=== PATIENT | female | born 1945 | race Caucasian/White ===

== ENCOUNTER 2019-04-08 11:08 | Inpatient (IN) | payer MEDICARE ==
[~2019-04-08] VITALS: Ht 162.6 cm; Wt 98.7 kg
[~2019-04-08 11:08] MED LIST: LEVAQUIN500 MG PO; MUCINEX DM ER1 EACH PO; PREDNISONE20 MG PO; VENTOLIN HFA18 GM INH
--- OUTSIDE RECORDS SUMMARY | 2019-04-08 11:12 | XMS REPORT ---
Author Author [facility] Address Unknown Phone Unavailable Care Team Providers Care Oil Pipe Inspector Helper Name Role Phone ZACHARY MONSIVAIS Unavailable Unavailable Problems This patient has no known problems. Allergies, Adverse Reactions, Alerts This patient has no known allergies or adverse reactions. Medications This patient has no known medications. Results Test Description Test Time Test Comments Text Results Atomic Results Result Comments MAGNESIUM 2019-03-03 05:52:00 MAGNESIUM (BEAKER) (test opcf=608) 1.7 mg/dL 1.6-2.6 BASIC METABOLIC [id number] 05:52:00* Test Item Value Reference Range Comments SODIUM (BEAKER) (test jqdv=919) 139 meq/L 136-145 POTASSIUM (BEAKER) (test rnlw=598) 4.3 meq/L 3.5-5.1 CHLORIDE (BEAKER) (test bqhk=709) 106 meq/L 98-107 CO2 (BEAKER) (test yfdw=176) 27 meq/L 22-29 BLOOD UREA NITROGEN (BEAKER) (test jlst=889) 14 mg/dL 7-21 CREATININE (BEAKER) (test mdgt=097) 0.74 mg/dL 0.57-1.25 GLUCOSE RANDOM (BEAKER) (test iqxv=896) 95 mg/dL 70-105 CALCIUM (BEAKER) (test ohdz=452) 8.9 mg/dL 8.4-10.2 EGFR (BEAKER) (test dnyu=5963) 76 mL/min/1.73 sq m ESTIMATED GFR IS NOT ACCURATE CREATININE CLEARANCE IN PREDICTING GLOMERULAR FILTRATION RATE. ESTIMATED GFR IS NOT APPLICABLE FOR DIALYSIS PATIENTS. CBC W/PLT COUNT & AUTO [id number] 05:27:00* Test Item Value Reference Range Comments WHITE BLOOD CELL COUNT (BEAKER) (test fees=035) 7.4 K/ L 3.5-10.5 RED BLOOD CELL COUNT (BEAKER) (test krdl=713) 4.00 M/ L 3.93-5.22 HEMOGLOBIN (BEAKER) (test vcke=221) 11.6 GM/DL 11.2-15.7 HEMATOCRIT (BEAKER) (test ojad=062) 35.7 % 34.1-44.9 MEAN CORPUSCULAR VOLUME (BEAKER) (test ubse=214) 89.3 fL 79.4-94.8 MEAN CORPUSCULAR HEMOGLOBIN (BEAKER) (test uipu=283) 29.0 pg 25.6-32.2 MEAN CORPUSCULAR HEMOGLOBIN CONC (BEAKER) (test ucpg=130) 32.5 GM/DL 32.2-35.5 RED CELL DISTRIBUTION WIDTH (BEAKER) (test zrjx=026) 13.3 % 11.7-14.4 PLATELET COUNT (BEAKER) (test byaj=032) 185 K/CU MM 150-450 MEAN PLATELET VOLUME (BEAKER) (test ecdn=647) 11.3 fL 9.4-12.3 NUCLEATED RED BLOOD CELLS (BEAKER) (test kyps=433) 0 /100 WBC 0-0 NEUTROPHILS RELATIVE PERCENT (BEAKER) (test ydew=508) 54 % LYMPHOCYTES RELATIVE PERCENT (BEAKER) (test kaov=928) 32 % MONOCYTES RELATIVE PERCENT (BEAKER) (test duaq=339) 10 % EOSINOPHILS RELATIVE PERCENT (BEAKER) (test nzwv=761) 2 % BASOPHILS RELATIVE PERCENT (BEAKER) (test sjog=515) 1 % NEUTROPHILS ABSOLUTE COUNT (BEAKER) (test qyjq=757) 4.00 K/ L 1.56-6.13 LYMPHOCYTES ABSOLUTE COUNT (BEAKER) (test waja=525) 2.37 K/ L 1.18-3.74 MONOCYTES ABSOLUTE COUNT (BEAKER) (test lops=454) 0.74 K/ L 0.24-0.36 EOSINOPHILS ABSOLUTE COUNT (BEAKER) (test mqaw=575) 0.17 K/ L 0.04-0.36 BASOPHILS ABSOLUTE COUNT (BEAKER) (test gjyd=086) 0.09 K/ L 0.01-0.08 IMMATURE GRANULOCYTES-RELATIVE PERCENT (BEAKER) (test oxij=9441) 1 % 0-1 [id number] 09:23:00* Test Item Value Reference Range Comments ACTIVATED CLOTTING TIME (BEAKER) (test iqvf=088) 257 sec TESTED AT [address] [address] [id number] 09:14:00* Test Item Value Reference Range Comments ACTIVATED CLOTTING TIME (BEAKER) (test vwur=934) 208 sec TESTED AT [place] [id number]
--- OUTSIDE RECORDS SUMMARY | 2019-04-08 11:12 | XMS REPORT | Clinical Summary ---
Author Author [facility] Address Unknown Phone Unavailable Care Team Providers Care Contractor General Engineering Name Role Phone William Broderick MD PCP Unavailable Allergies Comments Active Allergy Reactions Severity Noted Date Bone aches Celecoxib Other (See 07/22/2007 Comments) Codeine Nausea And High 09/26/1970 Vomiting Colestipol Anaphylaxis High 09/26/2011 Ezetimibe 10/15/2017 Muscle cramping to hands, feet, and legs Fenofibrate Other (See Medium 12/11/2015 Comments) Sweating,bone ache Fluoxetine Hcl Other (See 07/22/2007 Comments) Gabapentin Other (See 02/05/2017 Comments) Pregabalin Other (See 02/05/2017 Comments) myalgia Sdnpwnw-Oan-Bip Reductase Other (See 07/03/2014 Inhibitors Comments) Simvastatin Anaphylaxis High 09/26/2005 Medications End Date Status Medication Sig Dispensed Refills Start Date Active hydrochlorothiazide Take 25 mg by 0 (HYDRODIURIL) 25 MG mouth daily. tablet Active lisinopril Take 5 mg by 0 (PRINIVIL,ZESTRIL) 5 MG mouth daily. tablet Active HYDROcodone-acetaminophen Take 1 tablet 0 (NORCO 10-325) 10-325 mg by mouth per tablet every 6 (six) hours as needed. Active omeprazole (PRILOSEC) 20 Take 20 mg by 0 MG capsule mouth daily. Active oxybutynin (DITROPAN-XL) Take 10 mg by 0 10 MG 24 hr tablet mouth daily. Active conjugated estrogens Place 1 g 0 (PREMARIN) 0.625 mg/gram vaginally 3 vaginal cream (three) times a week at bedtime. Active fluticasone (FLONASE) 50 1 spray by 0 mcg/actuation nasal spray Nasal route as needed . Active aspirin 81 MG chewable Take 81 mg by 0 tablet mouth daily. Active b complex vitamins Take 1 0 capsule capsule by mouth daily. Active cholecalciferol, vitamin Take by 0 D3, 2,000 unit Cap mouth. Active FIBER, DEXTRIN, ORAL Take 1 0 capsule by mouth as needed. Active ferrous sulfate 325 (65 Take 325 mg 0 FE) MG EC tablet by mouth nightly. 03/02/2020 Active clopidogrel (PLAVIX) 75 Take 1 tablet 90 tablet 3 mg tablet (75 mg total) 9 by mouth daily. 12/28/2018 Discontinued fenofibrate (TRIGLIDE) Take 160 mg 0 160 MG tablet by mouth daily. 12/27/2018 Discontinued tiZANidine (ZANAFLEX) 4 Take 4 mg by 0 MG tablet mouth every 8 (eight) hours as needed. 12/28/2018 Discontinued metroNIDAZOLE (FLAGYL) Take 1 tablet 16 tablet 0 500 MG tablet (500 mg 3 total) by mouth 2 (two) times daily. Active Problems Problem Noted Date Subclavian steal syndrome 12/28/2018 Diverticulitis 09/26/2013 Encounters Care Team Description Date Type Specialty 03/03/2019 Travel Virgil Vargas MD STENT / SUBCLAVIAN 03/02/2019 Surgery Virgil Vargas MD Subclavian steal syndrome (Primary Dx) 03/02/2019 Hospital Cardiology - Encounter 03/03/2019 Virgil Vargas MD STENT / SUBCLAVIAN 12/28/2018 Surgery Virgil Vargas MD Subclavian steal syndrome (Primary Dx) 12/28/2018 Hospital Encounter after 04/07/2018 Family History Medical History Relation Name Comments Cancer Brother Hyperlipidemia Father Cancer Mother Diabetes Mother Hyperlipidemia Mother Relation Name Status Comments Brother Father Mother Social History Date Tobacco Use Types Packs/Day Years Used Former Smoker Smokeless Tobacco: Never Used Comments: quit in 1986 Alcohol Use Drinks/Week oz/Week Comments No Sex Assigned at Date Recorded Not on file Industry Job Start Date Occupation Not on file Not on file Not on file Travel End Travel History Travel Start No recent travel history available. Last Filed Vital Signs Time Taken Vital Sign Reading 03/03/2019 7:13 AM CDT Blood Pressure 177/79 03/03/2019 7:13 AM CDT Pulse 58 03/03/2019 7:13 AM CDT Temperature 36.8 C (98.3 F) 03/03/2019 7:13 AM CDT Respiratory Rate 18 03/03/2019 7:13 AM CDT Oxygen Saturation 95% - Inhaled Oxygen - Concentration 03/03/2019 7:13 AM CDT Weight 95.6 kg (210 lb 10.9 oz) 03/02/2019 5:30 AM CDT Height 163.8 cm (5' 4.5") 03/03/2019 7:13 AM CDT Body Mass Index 35.6 Plan of Treatment Not on file Implants Device Identifier Shelf Expiration Date Model / Serial / Lot Implanted Type Area Manufactur er 07/28/2021 [id number] / [id number] / Viabahn Vbx Stents-Per Right: GORE Implanted: Qty: 1 on 03/02/2019 by Virgil Andrews MD Procedures Comments Procedure Name Priority Date/Time Associated Diagnosis REPORT OF PROCEDURE - 03/04/2019 ENDOSCOPY SCAN 2:40 PM CDT RHYTHM STRIP - SCAN 03/04/2019 2:40 PM CDT CARDIAC CATH REPORT - 03/04/2019 SCAN 2:40 PM CDT VASCULAR DIAGRAM -SCAN 03/03/2019 5:22 PM CDT CBC W/PLT COUNT & AUTO Routine 03/03/2019 DIFFERENTIAL 4:57 AM CDT MAGNESIUM Routine 03/03/2019 4:57 AM CDT BASIC METABOLIC PANEL (7) Routine 03/03/2019 4:57 AM CDT CBC W/PLT COUNT & AUTO Routine 03/03/2019 DIFFERENTIAL 4:57 AM CDT POCT-ACT Routine 03/02/2019 9:17 AM CDT POCT-ACT Routine 03/02/2019 9:06 AM CDT STENT / SUBCLAVIAN 03/02/2019 Stricture of artery (HCC) 7:30 AM CDT Syncope and collapse Other transient cerebral ischemic attacks and related syndromes Case Notes (1)CASE POP6/ 802mgy. Special Needs REQ.2ND ROOM / W/ VASCULAR DIAGRAM -SCAN 02/03/2019 4:21 PM CDT REPORT OF PROCEDURE - 12/31/2018 ENDOSCOPY SCAN 1:40 PM LATHE HAND CARDIAC CATH REPORT - 12/31/2018 SCAN 1:40 PM LATHE HAND STENT / SUBCLAVIAN 12/28/2018 Subclavian steal syndrome 7:30 AM LATHE HAND Syncope and collapse Case Notes (1) CASE POP6 after 04/07/2018 Results * EKG-SCANNED (03/04/2019 2:40 PM CDT) Only the most recent of 2 results within the time period is included. Narrative Performed At * RHYTHM STRIP - SCAN (03/04/2019 2:40 PM CDT) Narrative Performed At * CARDIAC CATH REPORT - SCAN (03/04/2019 2:40 PM CDT) Narrative Performed At * VASCULAR DIAGRAM -SCAN (03/03/2019 5:22 PM CDT) Only the most recent of 2 results within the time period is included. Narrative Performed At * CBC with platelet count + automated diff (03/03/2019 4:57 AM CDT) WBC 7.4 3.5 - 10.5 K/L [facility] RBC 4.00 3.93 - 5.22 M/L [facility] Hemoglobin 11.6 11.2 - 15.7 GM/DL [facility] Hematocrit 35.7 34.1 - 44.9 % [facility] MCV 89.3 79.4 - 94.8 fL [facility] MCH 29.0 25.6 - 32.2 pg [facility] MCHC 32.5 32.2 - 35.5 GM/DL [facility] RDW 13.3 11.7 - 14.4 % [facility] Platelets 185 150 - 450 K/CU MM [facility] MPV 11.3 9.4 - 12.3 fL [facility] nRBC 0 0 - 0 /100 WBC [facility] % Neutros 54 % [facility] % Lymphs 32 % [facility] % Monos 10 % [facility] % Eos 2 % [facility] % Baso 1 % [facility] # Neutros 4.00 1.56 - 6.13 K/L [facility] # Lymphs 2.37 1.18 - 3.74 K/L [facility] # Monos 0.74 (H) 0.24 - 0.36 K/L [facility] # Eos 0.17 0.04 - 0.36 K/L [facility] # Baso 0.09 (H) 0.01 - 0.08 K/L [facility] Immature 1 0 - 1 % [facility] Granulocytes-[facility] Specimen Blood Performing Organization Address City/State/Zipcode Phone Number [address] * Magnesium (03/03/2019 4:57 AM CDT) Magnesium 1.7 1.6 - 2.6 mg/dL [facility] Specimen Blood Performing Organization Address City/State/Zipcode Phone Number [address] * Basic Metabolic Panel (03/03/2019 4:57 AM CDT) Sodium 139 136 - 145 meq/L [facility] Potassium 4.3 3.5 - 5.1 meq/L [facility] Chloride 106 98 - 107 meq/L [facility] CO2 27 22 - 29 meq/L [facility] BUN 14 7 - 21 mg/dL [facility] Creatinine 0.74 0.57 - 1.25 mg/dL [facility] Glucose 95 70 - 105 mg/dL [facility] Calcium 8.9 8.4 - 10.2 mg/dL [facility] EGFR 76Comment: ESTIMATED GFR IS mL/min/1.73 sq m [facility] NOT ACCURATE CREATININE [facility] CLEARANCE IN PREDICTING GLOMERULAR FILTRATION RATE. ESTIMATED GFR IS NOT APPLICABLE FOR DIALYSIS PATIENTS. Specimen Blood Performing Organization Address City/[facility] Cent[facility] Phone Number [address] [address] [facility] * POC ACTIVATED CLOTTING TIME (03/02/2019 9:17 AM CDT) Only the most recent of 2 results within the time period is included. Activated Clotting Time 257Comment: TESTED AT [facility] sec [address] Specimen Blood Performing Organization Address [facility] Centercode Phone Number [address] [phone] [facility] * CARDIAC CATH REPORT - SCAN (12/31/2018 1:40 PM LATHE HAND) Narrative Performed At after 04/07/2018 Insurance Payer Benefit Subscriber ID Type Phone Address Plan / Group [facility] xxxxxxxxxxx MEDICARE ADV Advance Directives For more information, please contact: [address] [address] Date Inactivated Comments Code Status Date Activated 03/03/2019 11:54 AM Full Code 03/02/2019 5:41 AM This code status was determined by: Patient 12/28/2018 6:24 PM Full Code 12/28/2018 5:33 AM This code status was determined by: Patient 09/28/2013 1:02 PM All possible means of support, including: cardiac massage, mechanical ventilation, and defibrillation will be used to support life. Code ONE 09/26/2013 9:06 PM
[2019-04-08] MEDS ORDERED: SODIUM CHLORIDE 0.9% 1000ML 1,000 ML IV STA (11:47)
[2019-04-08] MEDS ORDERED: ONDANSETRON HCL INJ 2MG/ML 2ML 2 MG/ML VIAL IV NR (12:00)
[2019-04-08 12:23] LABS: BASOPHILS # (AUTO) 0.1 (0.0-0.1); BASOPHILS % 0.4 % (0.0-1.0); EOSINOPHILS # (AUTO) 0.1 (0.0-0.4); EOSINOPHILS % 0.3 % (0.0-6.0); HEMATOCRIT 43.1 % (34.2-44.1); HEMOGLOBIN 14.7 g/dL (12.0-16.0); LYMPHOCYTES # (AUTO) 0.7 (1.0-3.2); LYMPHOCYTES % 4.1 % (18.0-39.1); MEAN CORPUSCULAR HEMOGLOBIN 29.5 pg (28-32); MEAN CORPUSCULAR HGB CONC 34.1 g/dL (31-35); MEAN CORPUSCULAR VOLUME 86.4 fL (81-99); MONOCYTES # (AUTO) 0.9 (0.2-0.8); MONOCYTES % 4.9 % (4.4-11.3); NEUTROPHILS % 89.6 % (38.7-80.0); PLATELET COUNT 275 x10e3/uL (140-360); RED BLOOD COUNT 4.99 x10e6/uL (3.6-5.1); RED CELL DISTRIBUTION WIDTH 13.5 % (11.7-14.4)
[2019-04-08] MEDS ORDERED: DIATRIZOATE MEGL/DIATRIZOA SOD 30 ML BTL PO ONE ×2 (12:27→12:29)
[2019-04-08 12:34] LABS: INR 0.86; PROTHROMBIN TIME 12.2 seconds (11.9-14.5)
[2019-04-08 12:35] LABS: PARTIAL THROMBOPLASTIN TIME 29.8 seconds (23.8-35.5)
[2019-04-08 12:40] LABS: BILIRUBIN,URINE NEGATIVE (NEGATIVE); CLARITY,URINE SL CLOUDY (CLEAR); COLOR,URINE ORANGE (YELLOW); KETONES,URINE NEGATIVE (NEGATIVE); LEUKOCYTE ESTERASE ,URINE TRACE (NEGATIVE); NITRITE,URINE NEGATIVE (NEGATIVE); PROTEIN,URINE DIPSTICK TRACE (NEGATIVE); URINE UROBILINOGEN 1 mg/dL (0.2 - 1)
[2019-04-08 12:42] LABS: ALANINE AMINOTRANSFERASE 16 IU/L (0-55); ALBUMIN 3.7 g/dL (3.5-5.0); ALKALINE PHOSPHATASE 79 IU/L (40-150); AMYLASE 52 U/L (25-125); ANION GAP 16.9 mmol/L (8-16); BLOOD UREA NITROGEN 24 mg/dL (7-26); BUN/CREATININE RATIO 25 (6-25); CARBON DIOXIDE 27 mmol/L (22-29); CHLORIDE 96 mmol/L (98-107); CREATINE KINASE 64 IU/L (29-168); CREATININE, SERUM 0.96 mg/dL (0.57-1.11); EST GLOMERULAR FILTRATION RATE 57 ML/MIN (60-); GLUCOSE 137 mg/dL (74-118); LIPASE 11 U/L (8-78); POTASSIUM 3.9 mmol/L (3.5-5.1); SODIUM 136 mmol/L (136-145)
[2019-04-08] MEDS ORDERED: SODIUM CHLORIDE 0.9% 1000ML 1,000 ML IV NR (13:02)
[2019-04-08 13:03] LABS: RBC,URINE 0-5 /HPF (0-5); WBC,URINE (MAN) 0-5 /HPF (0-5)
[2019-04-08 13:04] LABS: BACTERIA,URINE FEW /HPF; EPITHELIAL CELLS,URINE RARE /LPF
[2019-04-08] MEDS ORDERED: SODIUM CHLORIDE 0.9% 1000ML 1,000 ML ONE (13:12)
[2019-04-08] MEDS ORDERED: PIPER-TAZ 3.375 GM 50 ML IV SCH (13:15)
[2019-04-08] MEDS ORDERED: IOPAMIDOL 370 MG/ML 200 ML INFUS..BTL INJ ONE (14:03)
[2019-04-08] MEDS ORDERED: SODIUM CHLORIDE 0.9% 50ML 50 ML ONE (14:03)
[2019-04-08] MEDS ORDERED: MIDAZOLAM HCL 2 MG/2 ML VIAL ONE (14:24)
[2019-04-08] MEDS ORDERED: FENTANYL CITRATE/PF 100MCG/2 ML INJ ONE (14:24)
--- NOTE | 2019-04-08 15:18 | Diagnostic Imaging Report ---
EXAMINATION: CT of the abdomen and pelvis with contrast. TECHNIQUE: Helical CT images of the abdomen and pelvis were performed from the lung bases to the lesser trochanters after the intravenous administration of 100 cc of Isovue 300 and the oral administration of contrast. Coronal and sagittal reformatted images were obtained.Dose modulation, iterative reconstruction, and/or weight based adjustment of the mA/kV was utilized to reduce the radiation dose to as low as reasonably achievable. COMPARISON: None. CLINICAL HISTORY:Abdominal pain DISCUSSION: ABDOMEN/PELVIS: LOWER THORAX:Unremarkable. HEPATOBILIARY: No focal hepatic lesions. No intra-or extrahepatic biliary ductal dilation. The gallbladder is normal. SPLEEN: No splenomegaly. PANCREAS: Atrophic ADRENALS: No adrenal nodules. KIDNEYS/URETERS: No hydronephrosis, stones, or solid mass lesions. PELVIC ORGANS/BLADDER: Bladder is normal. Hysterectomy. PERITONEUM/RETROPERITONEUM: No free air or fluid. LYMPH NODES: No intra-abdominal, retroperitoneal, pelvic or inguinal lymphadenopathy. VESSELS: Mild vascular calcifications. GI TRACT: Extensive sigmoid diverticulosis. Mild stranding adjacent to the descending colon. BONES AND SOFT TISSUE: No bony destructive lesions. No soft tissue abnormalities. IMPRESSION: Colonic diverticulosis with probable mild diverticulitis of the descending colon. No abscess. Signed by: Dr. Christopher Don M.D. on 04/08/2019 3:15 PM
[2019-04-08] MEDS ORDERED: MORPHINE SULFATE 2 MG/ML SYR 1ML IV PRN (16:45)
[2019-04-08] MEDS ORDERED: MORPHINE SULFATE INJ 4 MG/ML INJ 1ML IV PRN (16:45)
[2019-04-08] MEDS ORDERED: ONDANSETRON HCL INJ 2MG/ML 2ML 2 MG/ML VIAL IV PRN (16:45)
--- OUTSIDE RECORDS SUMMARY | 2019-04-08 16:54 | XMS REPORT | Clinical Summary ---
Author Author [facility] Address Unknown Phone Unavailable Care Team Providers Care Rn Rehabilitation Name Role Phone William Broderick MD PCP [...] Comments) Pregabalin Other (See 02/05/2017 Comments) myalgia Lfaesmw-Lfd-Bup Reductase Other (See 07/03/2014 Inhibitors Comments) Simvastatin [...] Lot Implanted Type Area Manufactur er 07/28/2021 [id number] / [id number] / [employer] Vbx Stents-Per Right: GORE Implanted: [...] PROCEDURE - 12/31/2018 ENDOSCOPY SCAN 1:[address] CARDIAC CATH REPORT - 12/31/2018 SCAN 1:[address] STENT / SUBCLAVIAN 12/28/2018 Subclavian steal syndrome 7:[address] Syncope and collapse Case Notes (1) CASE [...] CDT) WBC 7.4 3.5 - 10.5 K/L [facility] RBC 4.00 3.93 - 5.22 M/L [facility] Hemoglobin 11.6 11.2 - 15.7 GM/DL [facility] Hematocrit 35.7 34.1 - 44.9 % [facility] MCV 89.3 79.4 - 94.8 fL [facility] MCH 29.0 25.6 - 32.2 pg [facility] MCHC 32.5 32.2 - 35.5 GM/DL [facility] RDW 13.3 11.7 - 14.4 % [facility] Platelets 185 150 - 450 K/CU MM [facility] MPV 11.3 9.4 - 12.3 fL [facility] nRBC 0 0 - 0 /100 WBC [facility] % Neutros 54 % [facility] % Lymphs 32 % [facility] % Monos 10 % [facility] % Eos 2 % [facility] % Baso 1 % [facility] # Neutros 4.00 1.56 - 6.13 K/L [facility] # Lymphs 2.37 1.18 - 3.74 K/L [facility] # Monos 0.74 (H) 0.24 - 0.36 K/L [facility] # Eos 0.17 0.04 - 0.36 K/L [facility] # Baso 0.09 (H) 0.01 - 0.08 K/L [facility] Immature 1 0 - 1 % [facility] Granulocytes-[facility] Specimen Blood Performing Organization Address City/State/Zipcode Phone Number [address] * Magnesium (03/03/2019 4:57 AM CDT) Magnesium 1.7 1.6 - 2.6 mg/dL [facility] Specimen Blood Performing Organization Address City/State/Zipcode Phone Number [address] * Basic Metabolic Panel (03/03/2019 4:57 AM CDT) Sodium 139 136 - 145 meq/L [facility] Potassium 4.3 3.5 - 5.1 meq/L [facility] Chloride 106 98 - 107 meq/L [facility] CO2 27 22 - 29 meq/L [facility] BUN 14 7 - 21 mg/dL [facility] Creatinine 0.74 0.57 - 1.25 mg/dL [facility] Glucose 95 70 - 105 mg/dL [facility] Calcium 8.9 8.4 - 10.2 mg/dL [facility] EGFR 76Comment: ESTIMATED GFR IS mL/min/1.73 sq m [facility] NOT ACCURATE CREATININE [facility] CLEARANCE IN PREDICTING GLOMERULAR FILTRATION RATE. ESTIMATED GFR IS NOT APPLICABLE FOR DIALYSIS PATIENTS. Specimen Blood Performing Organization Address City/[facility] Cent[facility] Phone Number [address] [phone] [facility] * POC ACTIVATED CLOTTING TIME (03/02/2019 9:17 AM CDT) Only the most recent of 2 results within the time period is included. Activated Clotting Time 257Comment: TESTED AT [facility] sec [address] Specimen Blood Performing Organization Address [facility] Centercode Phone Number [address] [phone] [facility] * CARDIAC CATH REPORT - SCAN (12/31/2018 1:[address]) Narrative Performed At after 04/07/2018 Insurance Payer Benefit Subscriber ID Type Phone Address Plan / Group [facility] xxxxxxxxxxx MEDICARE ADV Advance Directives For more information, please contact: [address] [address] Date Inactivated Comments Code Status Date Activated [...]
[2019-04-08] MEDS ORDERED: ESIDRIX25 MG PO (17:15)
[2019-04-08] MEDS ORDERED: OXYBUTYNIN CHLO15 MG PO (17:15)
[2019-04-08] MEDS ORDERED: PANTOPRAZOLE SO40 MG PO (17:15)
[2019-04-08] MEDS ORDERED: TIZANIDINE HCL4 MG PO (17:15)
[2019-04-08] MEDS ORDERED: LISINOPRIL5 MG PO (17:15)
[2019-04-08] MEDS ORDERED: HYDROCODON-ACE1 EAC8 PO (17:15)
[2019-04-08] MEDS: SODIUM CHLORIDE 0.9% 1000ML 1,000 ML IV SCH (17:42)
[2019-04-08] MEDS: METRONIDAZOLE 500MG/NS 100ML 100 ML IV SCH ×2 (17:42→22:10)
--- NOTE | 2019-04-08 18:51 | NUR ---
PATIENT ARRIVED ON THE UNIT AT 1839 PER STRETCHER FROM THE ER. PATIENT IS IN STABLE CONDITION WITH NO S/S OF RESPIRATORY DISTRESS. NO PAIN VOICED. IV FLUIDS INFUSING. BED ALARM ON. CALL LIGHT IS WITHIN REACH, PATIENT INSTRUCTED TO CALL FOR ASSISTANCE NEEDED.
--- NOTE | 2019-04-08 19:34 | NUR ---
PATIENT RESTING IN BED- IN STABLE CONDITION WITH NO S/S OF RESPIRATORY DISTRESS. NO PAIN VOICED. IV FLUIDS INFUSING. PRESENT IN ROOM. BED ALARM ON. CALL LIGHT IS WITHIN REACH, PATIENT INSTRUCTED TO CALL FOR ASSISTANCE NEEDED. BEDSIDE SHIFT REPORT GIVEN TO ONCOMING NURSE.
[2019-04-08] MEDS: PIPER-TAZ 3.375 GM 50 ML IV SCH (20:13)
[2019-04-08 21:00] VITALS: BP 150/65
[2019-04-08 21:10] VITALS: BP 150/65
[2019-04-08] MEDS ORDERED: CLOPIDOGREL75 MG PO (23:59)
[2019-04-08] MEDS ORDERED: FISH OIL 1,0001 EAC3 (23:59)
[2019-04-08] MEDS ORDERED: FLUTICASONE PRO16 GM (23:59)
[2019-04-08] MEDS ORDERED: FERROUS GLUCON324 M2 (23:59)
[2019-04-08] MEDS ORDERED: NORCO 10-325 T1 EACH (23:59)
[2019-04-08] MEDS ORDERED: ASPIRIN EC81 MG PO (23:59)
[2019-04-09] VITALS (8 sets, daily range): BP systolic 119–144; BP diastolic 58–64
--- NOTE | 2019-04-09 00:45 | NUR ---
patient in bed awake watching TV, no complaints in at this time. IV intact
[2019-04-09] MEDS: PIPER-TAZ 3.375 GM 50 ML IV SCH ×2 (01:54→08:33)
[2019-04-09] MEDS: SODIUM CHLORIDE 0.9% 1000ML 1,000 ML IV SCH ×2 (02:05→08:33)
[2019-04-09] MEDS: METRONIDAZOLE 500MG/NS 100ML 100 ML IV SCH ×2 (04:10→09:41)
[2019-04-09 06:07] LABS: BASOPHILS # (AUTO) 0.1 (0.0-0.1); BASOPHILS % 0.8 % (0.0-1.0); EOSINOPHILS # (AUTO) 0.1 (0.0-0.4); EOSINOPHILS % 1.1 % (0.0-6.0); HEMATOCRIT 33.4 % (34.2-44.1); LYMPHOCYTES # (AUTO) 1.8 (1.0-3.2); LYMPHOCYTES % 16.8 % (18.0-39.1); MEAN CORPUSCULAR HEMOGLOBIN 28.7 pg (28-32); MEAN CORPUSCULAR HGB CONC 32.9 g/dL (31-35); MEAN CORPUSCULAR VOLUME 87.2 fL (81-99); MONOCYTES # (AUTO) 1.1 (0.2-0.8); MONOCYTES % 10.3 % (4.4-11.3); NEUTROPHILS # (AUTO) 7.5 (2.1-6.9); NEUTROPHILS % 70.5 % (38.7-80.0); PLATELET COUNT 199 x10e3/uL (140-360); RED BLOOD COUNT 3.83 x10e6/uL (3.6-5.1); RED CELL DISTRIBUTION WIDTH 13.7 % (11.7-14.4)
[2019-04-09 06:19] LABS: ALANINE AMINOTRANSFERASE 11 IU/L (0-55); ALBUMIN 2.6 g/dL (3.5-5.0); ALBUMIN/GLOBULIN RATIO 0.9 (0.8-2.0); ALKALINE PHOSPHATASE 55 IU/L (40-150); ANION GAP 10.5 mmol/L (8-16); BLOOD UREA NITROGEN 13 mg/dL (7-26); BUN/CREATININE RATIO 17 (6-25); CALCIUM 8.7 mg/dL (8.4-10.2); CARBON DIOXIDE 26 mmol/L (22-29); CHLORIDE 103 mmol/L (98-107); CREATININE, SERUM 0.76 mg/dL (0.57-1.11); EST GLOMERULAR FILTRATION RATE > 60 ML/MIN (60-); GLUCOSE 102 mg/dL (74-118); POTASSIUM 3.5 mmol/L (3.5-5.1); SODIUM 136 mmol/L (136-145)
--- NOTE | 2019-04-09 07:03 | NUR ---
report given to Meche SHEPPARD, patient in room with eyes closed, IV intact.
--- NOTE | 2019-04-09 07:30 | NUR ---
PATIENT IS AWAKE, ALERT AND IN STABLE CONDITION WITH NO S/S OF RESPIRATORY DISTRESS. PATIENT C/O LLQ/BACK PAIN 01/02. IV FLUIDS INFUSING. PATIENT STATED SHE HAS LOOSE BM'S EVERY TIME SHE URINATES SINCE YESTERDAY EVENING. COLLECTION HAT HAS BEEN PUT IN PLACE FOR STOOL COLLECTION AND ISOLATION PLACED FOR PRECAUTION. CALL LIGHT IS WITHIN REACH, PATIENT INSTRUCTED TO CALL FOR ASSISTANCE NEEDED.
[2019-04-09] MEDS: OXYBUTYNIN CHLORIDE XL 5 MG TAB PO SCH (12:23)
[2019-04-09] MEDS: LEVOFLOXACIN 500 MG TAB PO SCH (12:23)
[2019-04-09] MEDS: SUCRALFATE 1 GM TAB PO SCH ×3 (12:23→20:55)
[2019-04-09] MEDS: PANTOPRAZOLE SOD 40 MG TABEC PO SCH ×2 (12:23→16:34)
--- NOTE | 2019-04-09 12:35 | NUR ---
DR. DAILY ON THE UNIT- ORDER TO HOLD PLAVIX AND CHANGE ARTERIAL DUPLEX TO STAT. CLEARANCE RECEIVED FROM DR. DAILY FOR EGD OR COLONOSCOPY.
[2019-04-09] MEDS: METRONIDAZOLE 500 MG TAB PO SCH ×2 (14:34→20:55)
[2019-04-09] MEDS: LACTOBACILLUS ACIDOPHILUS CAPSULE PO SCH ×2 (14:34→20:55)
--- NOTE | 2019-04-09 19:13 | NUR ---
PATIENT IS RESTING IN BED- IN STABLE CONDITION WITH NO S/S OF RESPIRATORY DISTRESS. NO PAIN VOICED. CALL LIGHT IS WITHIN REACH-- PATIENT INSTRUCTED TO CALL FOR ASSISTANCE NEEDED. BEDSIDE SHIFT REPORT GIVEN TO ONCOMING NURSE.
--- NOTE | 2019-04-09 19:21 | NUR ---
PT IS RESTING IN BED. RESPIRATION IS EVEN AND UNLABORED, NO DISTRESS NOTED. BED IN THE LOWEST POSITION, LOCKED, AND CALL LIGHT WITHIN REACH. WILL CONTINUE TO MONITOR.
--- NOTE | 2019-04-09 19:54 | Consultation ---
DATE OF CONSULTATION: 04/09/2019 Cardiac Consultation REASON FOR CONSULTATION: GI bleed in a patient, who had recent covered right subclavian stent. HISTORY: A delightful lady, who is known with hypertension, asthma-like syndrome, and repeated diarrhea and diverticulosis with history of C. difficile 3 times, latest the year ago. The patient had a life screen, which showed bidirectional or retrograde right vertebral flow. Subsequently diagnosed with occluded or severely stenotic right subclavian. She had covered stent placed on March 02, 2019 in [facility] by [facility]. The patient is maintained on aspirin and Plavix. She was doing well till approximately 2 or 3 days ago, where she started having upper respiratory tract like infection. Subsequent, she started having severe diarrhea. This recruiting associate hour around 2 o'clock, she wake up and she had nausea, vomiting, and diarrhea. She vomited blood and she started having black tarry stool. She had several episodes of black tarry stool. She came to the emergency room, admitted for further management with GI bleed. Cardiac consultation is obtained. I visited with the patient, whom really truly denied having any prior cardiac history with the exception for palpitation. Her palpitation comes and goes at random. She tend to have some time which are more frequent and less frequent. She is treated medically for that. She never had a stress test. Her only vascular issue was her right subclavian, which was discovered during screen and she had covered stent recently on March 02. There is no orthopnea. No paroxysmal nocturnal dyspnea. There is shortness of breath on exertion, early class 3. There is no leg edema. Her activities are limited because of back problem and arthritis. REVIEW OF SYSTEMS: Done to all 14 systems, will be summarized for clarity. GENERAL: No fever. No chills till recently with upper respiratory tract infection like symptoms. PULMONARY: No cough. No hemoptysis. GI: As per acute illness. : Stress incontinence at time. No hematuria. No dysuria. MUSCULOSKELETAL: Low back pain. NEUROLOGICAL: No seizure. No localized weakness. ENDOCRINE: No diabetes. HEMATOLOGY: Easy bruising, but no bleeding. SOCIAL HISTORY: She is . She stops smoking long time ago. She does not drink alcohol. HOME MEDICATIONS: Include aspirin 81 mg a day, Plavix 75 mg a day, hydrochlorothiazide 25 mg a day, lisinopril 5 mg a day, albuterol, fluticasone, iron sulfate, oxybutynin, and Protonix. ALLERGIES: PROZAC, FLUOXETINE, CODEINE, STATIN, ZETIA, FENOFIBRATE, AND LYRICA. PAST MEDICAL HISTORY: 1. Hypertension. 2. Hypercholesteremia. 3. Asthma-like illness. 4. Hysterectomy. 5. Recent right subclavian stent on March 02, 2019. 6. Diverticulosis. 7. Low back pain. FAMILY HISTORY: No family history of premature coronary artery disease. PHYSICAL EXAMINATION: VITAL SIGNS: Height of 5 feet 4 inches, weight of 210 pounds, blood pressure on the left arm 123/56, on the right arm is 110/50, heart rate of 60, and respiratory rate of 18. HEENT: Pupils are equal and reactive. NECK: No elevation of jugular venous pulsation. CHEST: Clear to auscultation and percussion. HEART: PMI at 5th left intercostal space. Normal first and second heart sounds. ABDOMEN: Soft. No organomegaly. No abdominal bruits. EXTREMITIES: No cyanosis. No clubbing. No edema. NEUROLOGIC: Awake, alert, and oriented. No motor deficits. SKIN: No rashes. Other important finding is decrease in the amplitude of pulse in the right radial by comparison to the left radial to less extent in the right brachial by comparison to the left brachial. LABORATORY DATA: Sodium of 136, potassium 3.5, BUN 13, and creatinine of 0.8. White blood cell count of 10.6, hemoglobin 11, hematocrit 33%, and platelet count of 199,000. EKG showed normal sinus rhythm, poor R-wave progression. CT abdomen showing diverticulosis changes. IMPRESSION AND PLAN: 1. Acute gastrointestinal bleed. 2. Diverticulosis. 3. Hypertension. 4. Hypercholesteremia with intolerance to statin. 5. Vascular disease, status post covered stent to the right subclavian on March 02. 6. Palpitation. 7. Probability of coronary artery disease. Cardiac morin, I believe it is okay to stop the Plavix because of the GI bleed and to pursue GI workup. Definitely, the patient does have covered stent and it is only 5 weeks since this stent placement, but since she is having GI bleed, this needs to be done. By physical exam, definitely, the pressure and the finding on the right arm consistent with PVD. Although there is still discrepancy sometimes the presence of stent can get this feeling or possible there is problem with the stent, but regardless, right hand is getting enough circulation. We will get arterial Doppler of both upper extremities. We will observe the patient's progression with you. We will watch her H and H. she can get IV fluid as needed. Pending on her course, further steps to be done. She is cleared for GI workup. MD NANETTE Parmar/MODL /[id number]
[2019-04-09] MEDS: HYDROCODONE/APAP 5MG-325MG TAB PO PRN (20:59)
[2019-04-10] VITALS (9 sets, daily range): BP systolic 137–173; BP diastolic 60–75
[2019-04-10] MEDS: METRONIDAZOLE 500 MG TAB PO SCH ×3 (05:30→20:44)
[2019-04-10 07:12] LABS: BASOPHILS # (AUTO) 0.1 (0.0-0.1); BASOPHILS % 1.4 % (0.0-1.0); EOSINOPHILS # (AUTO) 0.2 (0.0-0.4); EOSINOPHILS % 2.8 % (0.0-6.0); HEMATOCRIT 32.7 % (34.2-44.1); HEMOGLOBIN 11.1 g/dL (12.0-16.0); MEAN CORPUSCULAR HEMOGLOBIN 29.5 pg (28-32); MEAN CORPUSCULAR HGB CONC 33.9 g/dL (31-35); MONOCYTES # (AUTO) 0.7 (0.2-0.8); MONOCYTES % 8.7 % (4.4-11.3); NEUTROPHILS # (AUTO) 5.4 (2.1-6.9); NEUTROPHILS % 63.5 % (38.7-80.0); PLATELET COUNT 217 x10e3/uL (140-360); RED BLOOD COUNT 3.76 x10e6/uL (3.6-5.1); RED CELL DISTRIBUTION WIDTH 13.5 % (11.7-14.4)
--- NOTE | 2019-04-10 07:25 | NUR ---
PATIENT IS IN STABLE CONDITION WITH NO S/S OF RESPIRATORY DISTRESS. NO PAIN VOICED. PATIENT IS NPO FOR EGD TODAY. CALL LIGHT IS WITHIN REACH OF PATIENT- PATIENT INSTRUCTED TO CALL FOR ASSISTANCE NEEDED.
[2019-04-10] MEDS: SUCRALFATE 1 GM TAB PO SCH ×4 (07:30→20:44)
[2019-04-10] MEDS: PANTOPRAZOLE SOD 40 MG TABEC PO SCH (07:30)
[2019-04-10 07:35] LABS: % IRON SATURATION 26 % (15-50); IRON 47 ug/dL (50-170); TOTAL IRON BINDING CAPACITY 182 ug/dL (261-478); TRANSFERRIN 130 mg/dL (180-382)
--- NOTE | 2019-04-10 08:08 | NUR ---
PATIENT OFF THE UNIT PER BED TO ENDOSCOPY FOR EGD. PATIENT IN STABLE CONDITION WITH NO S/S OF RESPIRATORY DISTRESS.
[2019-04-10] MEDS: LACTOBACILLUS ACIDOPHILUS CAPSULE PO SCH ×3 (09:00→20:44)
--- NOTE | 2019-04-10 09:12 | NUR ---
PATIENT IS BACK ON THE UNIT- 02 APPLIED AT 2L NC. PATIENT IS IN STABLE CONDITION WITH NO S/S OF RESPIRATORY DISTRESS. PATIENT IS TO REMAIN NPO UNTIL AFTER DIAGNOSTIC EXAM AND THEN CAN RESUME CLEAR LIQUIDS. CALL LIGHT IS WITHIN REACH OF PATIENT- PATIENT INSTRUCTED TO CALL FOR ASSISTANCE NEEDED.
--- NOTE | 2019-04-10 09:33 | NUR ---
CALL PLACED OUT TO DR. INTERIANO REGARDING GI BLEED ORDER- AWAITING CALLBACK.
[2019-04-10] MEDS: PANTOPRAZOLE 40 MG 10ML VIAL IV SCH ×2 (09:58→20:44)
[2019-04-10] MEDS ORDERED: PROPOFOL IV EMULSION 10 MG/ML 20 ML VIAL ONE (13:21)
[2019-04-10] MEDS ORDERED: SODIUM CHLORIDE 0.9% 1000ML 1,000 ML IV ONE (14:15)
--- NOTE | 2019-04-10 14:21 | NUR ---
PATIENT OFF THE UNIT PER WHEELCHAIR TO [facility] FOR PROCEDURE- PATIENT IS IN STABLE CONDITION WITH NO S/S OF RESPIRATORY DISTRESS.
[2019-04-10] MEDS ORDERED: POTASSIUM CHLORIDE 20 MEQ TAB CR PO ONE (14:45)
[2019-04-10] MEDS: OXYBUTYNIN CHLORIDE XL 5 MG TAB PO SCH (16:10)
[2019-04-10] MEDS: HYDROCODONE/APAP 5MG-325MG TAB PO PRN ×2 (16:10→21:59)
[2019-04-10] MEDS: LEVOFLOXACIN 500 MG TAB PO SCH (16:10)
--- NOTE | 2019-04-10 16:23 | Operative Report ---
DATE OF PROCEDURE: 04/10/2019 SURGEON: Reji Blevins MD PROCEDURE: An EGD with biopsies. INDICATION FOR PROCEDURE: History of hematemesis, melena. MEDICATIONS: The patient was done under MAC, please see anesthesiologist's note. PROCEDURE IN DETAIL: With the patient in left lateral decubitus position, flexible fiberoptic Olympus gastroscope was introduced into the esophagus under direct visualization without any difficulty. There was some patchy erythema noted in distal esophagus. The scope was then advanced with ease into the stomach. Mucosa overlying the antrum revealed some patchy intense erythema and moderate edema, and biopsies were obtained and sent to stain for H pylori. Gastric polyps, hyperplastic appearing were noted in the body of the stomach and somewhat partially excised with the cold biopsy forceps. The pylorus was intubated with ease and the scope was advanced all the way to the second portion of the duodenum. The scope was then withdrawn slowly, mucosa overlying the proximal second portion and duodenal bulb grossly appeared to be within normal limits. The scope was then withdrawn back into the stomach and retroflexed, and mucosa overlying the fundus and cardia appeared to be within normal limits. The scope was then straightened out, it was subsequently withdrawn. The patient tolerated the procedure well. IMPRESSION: 1. Distal esophagitis, mild. 2. Gastritis, biopsied; biopsies sent to stain for H pylori. 3. Gastric polyps, body, hyperplastic appearing, some partially excised with the cold biopsy forceps. PLAN: Follow up histology. Findings do not explain the patient's melena or anemia. We will get a GI bleed scan. Reji Blevins MD [facility] /[id number] cc: Conchita Thompson MD
--- NOTE | 2019-04-10 17:31 | Diagnostic Imaging Report ---
Tagged-RBC GI Bleed Study Clinical information: 74-year-old female with diverticulitis, anemia and melena.. Discussion: The patient's own red blood cells were labeled with 25 mCi of technetium-99m pertechnetate using the in vitro method (UltraTag). Dynamic images of the abdomen were obtained through 60 minutes. Distribution of tracer activity appears physiologic throughout the abdomen. No abnormal accumulation of tracer is seen within the gastrointestinal lumen. Impression: No scan evidence of active gastrointestinal bleeding at this time. Signed by: Dr. Sydnie Gutierrez M.D. on 04/10/2019 5:27 PM
--- NOTE | 2019-04-10 19:19 | NUR ---
CALL PLACED OUT TO DR. INTERIANO TO INFORM HIM OF GI BLEED RESULTS- AWAITING CALLBACK.
--- NOTE | 2019-04-10 19:19 | NUR ---
PATIENT IS IN STABLE CONDITION WITH NO S/S OF RESPIRATORY DISTRESS. IV FLUIDS INFUSING. PRESENT IN ROOM. THE CALL LIGHT IS WITHIN REACH OF PATIENT- PATIENT INSTRUCTED TO CALL FOR ASSISTANCE NEEDED. BEDSIDE SHIFT REPORT GIVEN TO ONCOMING NURSE.
--- NOTE | 2019-04-10 19:52 | NUR ---
PT IS RESTING IN BED WITH AT BEDSIDE. RESPIRATION IS EVEN AND UNLABORED, NO DISTRESS NOTED. BED IN THE LOWEST POSITION, LOCKED, AND CALL LIGHT WITHIN REACH. WILL CONTINUE TO MONITOR.
[2019-04-11] VITALS (9 sets, daily range): BP systolic 130–177; BP diastolic 59–77
[2019-04-11] MEDS: METRONIDAZOLE 500 MG TAB PO SCH ×3 (05:11→22:00)
[2019-04-11 06:27] LABS: BASOPHILS # (AUTO) 0.1 (0.0-0.1); BASOPHILS % 1.4 % (0.0-1.0); EOSINOPHILS # (AUTO) 0.3 (0.0-0.4); EOSINOPHILS % 4.7 % (0.0-6.0); HEMATOCRIT 33.1 % (34.2-44.1); HEMOGLOBIN 10.6 g/dL (12.0-16.0); LYMPHOCYTES # (AUTO) 2.2 (1.0-3.2); LYMPHOCYTES % 31.1 % (18.0-39.1); MEAN CORPUSCULAR HEMOGLOBIN 28.6 pg (28-32); MEAN CORPUSCULAR VOLUME 89.5 fL (81-99); MONOCYTES # (AUTO) 0.6 (0.2-0.8); MONOCYTES % 7.9 % (4.4-11.3); NEUTROPHILS # (AUTO) 3.8 (2.1-6.9); NEUTROPHILS % 53.9 % (38.7-80.0); PLATELET COUNT 213 x10e3/uL (140-360); RED CELL DISTRIBUTION WIDTH 13.4 % (11.7-14.4)
[2019-04-11 06:51] LABS: ANION GAP 10.6 mmol/L (8-16); BLOOD UREA NITROGEN 6 mg/dL (7-26); BUN/CREATININE RATIO 9 (6-25); CALCIUM 8.9 mg/dL (8.4-10.2); CARBON DIOXIDE 25 mmol/L (22-29); CHLORIDE 107 mmol/L (98-107); CREATININE, SERUM 0.66 mg/dL (0.57-1.11); EST GLOMERULAR FILTRATION RATE > 60 ML/MIN (60-); GLUCOSE 88 mg/dL (74-118); MAGNESIUM 1.6 MG/DL (1.3-2.1); POTASSIUM 3.6 mmol/L (3.5-5.1); SODIUM 139 mmol/L (136-145)
[2019-04-11] MEDS: SUCRALFATE 1 GM TAB PO SCH ×4 (07:30→21:00)
[2019-04-11] MEDS: HYDROCODONE/APAP 5MG-325MG TAB PO PRN ×3 (08:44→21:05)
--- NOTE | 2019-04-11 09:10 | NUR ---
Patient alert and responsive, no resp distress, in bed, completing neb treatments, BP slightly elevated, attending notified.
[2019-04-11] MEDS: LACTOBACILLUS ACIDOPHILUS CAPSULE PO SCH ×3 (09:42→21:00)
[2019-04-11] MEDS: PANTOPRAZOLE 40 MG 10ML VIAL IV SCH (09:42)
[2019-04-11] MEDS: OXYBUTYNIN CHLORIDE XL 5 MG TAB PO SCH (09:42)
[2019-04-11] MEDS: LISINOPRIL 2.5 MG TAB PO SCH (10:16)
[2019-04-11] MEDS: HYDROCHLOROTHIAZIDE 25 MG TAB PO SCH (10:16)
[2019-04-11] MEDS: LEVOFLOXACIN 500 MG TAB PO SCH (10:17)
[2019-04-11] MEDS ORDERED: POTASSIUM CHLORIDE 20 MEQ TAB CR PO SCH (10:30)
[2019-04-11] MEDS ORDERED: MAGNESIUM SULFATE 2GM/50ML 50 ML IV ONE (10:30)
--- NOTE | 2019-04-11 10:37 | NUR ---
Rounds by attending and restarted home BP meds, administered, electrolyte replacement, CXR ordered and completed, will monitor.
--- NOTE | 2019-04-11 12:17 | Diagnostic Imaging Report ---
Examination: Single AP view of the chest. COMPARISON: None. INDICATION: Cough DISCUSSION: Lines/tubes: None. Lungs: The lungs are well inflated and clear. No pneumonia or pulmonary edema. Pleura: No pleural effusion or pneumothorax. Heart and mediastinum: The heart and the mediastinum are unremarkable. Bones and soft tissues: No acute bony abnormalities. IMPRESSION: 1. No acute cardiopulmonary abnormalities. Signed by: Dr. Christopher Don M.D. on 04/11/2019 12:14 PM
--- NOTE | 2019-04-11 19:15 | NUR ---
Bedside rounds completed with morning nurse. Pt alert to name. Lying in bed HOB 45 degrees. Denies pain at this time. 18g IV left AC, s/l. No acute distress noted. Call farias within reach. Will continue to monitor.
[2019-04-12] VITALS: BP 160/77
[2019-04-12] MEDS: HYDROCODONE/APAP 5MG-325MG TAB PO PRN ×2 (02:55→09:22)
[2019-04-12 04:00] VITALS: BP 174/77
[2019-04-12] MEDS: METRONIDAZOLE 500 MG TAB PO SCH (06:00)
[2019-04-12 06:28] LABS: BASOPHILS # (AUTO) 0.2 (0.0-0.1); BASOPHILS % 2.2 % (0.0-1.0); EOSINOPHILS # (AUTO) 0.3 (0.0-0.4); EOSINOPHILS % 4.5 % (0.0-6.0); HEMATOCRIT 33.9 % (34.2-44.1); HEMOGLOBIN 10.9 g/dL (12.0-16.0); LYMPHOCYTES # (AUTO) 2.5 (1.0-3.2); LYMPHOCYTES % 33.3 % (18.0-39.1); MEAN CORPUSCULAR HEMOGLOBIN 28.5 pg (28-32); MEAN CORPUSCULAR HGB CONC 32.2 g/dL (31-35); MEAN CORPUSCULAR VOLUME 88.7 fL (81-99); MONOCYTES # (AUTO) 0.7 (0.2-0.8); MONOCYTES % 8.8 % (4.4-11.3); NEUTROPHILS # (AUTO) 3.6 (2.1-6.9); NEUTROPHILS % 48.4 % (38.7-80.0); PLATELET COUNT 250 x10e3/uL (140-360); RED BLOOD COUNT 3.82 x10e6/uL (3.6-5.1); RED CELL DISTRIBUTION WIDTH 13.4 % (11.7-14.4)
[2019-04-12 06:51] LABS: BLOOD UREA NITROGEN 12 mg/dL (7-26); BUN/CREATININE RATIO 16 (6-25); CALCIUM 9.1 mg/dL (8.4-10.2); CARBON DIOXIDE 27 mmol/L (22-29); CHLORIDE 103 mmol/L (98-107); CREATININE, SERUM 0.74 mg/dL (0.57-1.11); EST GLOMERULAR FILTRATION RATE > 60 ML/MIN (60-); GLUCOSE 104 mg/dL (74-118); MAGNESIUM 1.7 MG/DL (1.3-2.1); SODIUM 137 mmol/L (136-145)
[2019-04-12] MEDS ORDERED: PANTOPRAZOLE SOD 40 MG TABEC PO SCH (07:30)
--- NOTE | 2019-04-12 07:30 | NUR ---
Change of shift report received from SILVER Kessler. Pt just finished using the bathroom sts, "I am feeling a lot better." denies pain to her abdomen. Instructed to call for assistance if needed. Call light is within reach, bed is locked x2 and in lowest position. Pt verbalized understanding.
[2019-04-12 07:36] LABS: THYROID STIMULATING HORMONE 2.548 uIU/mL (0.350-4.940)
[2019-04-12 08:00] VITALS: BP 186/77
[2019-04-12] MEDS: SUCRALFATE 1 GM TAB PO SCH ×2 (08:30→12:45)
[2019-04-12] MEDS ORDERED: NON-FORMULARY MEDICATION (Lisinopril 5 MG) PO SCH (09:00)
[2019-04-12] MEDS: OXYBUTYNIN CHLORIDE XL 5 MG TAB PO SCH (09:14)
[2019-04-12] MEDS: HYDROCHLOROTHIAZIDE 25 MG TAB PO SCH (09:14)
[2019-04-12] MEDS: LISINOPRIL 2.5 MG TAB PO SCH ×2 (09:15→09:22)
[2019-04-12] MEDS: LACTOBACILLUS ACIDOPHILUS CAPSULE PO SCH (09:15)
[2019-04-12] MEDS ORDERED: HEPARIN SOD (PORCINE) 1000 UNIT/ML SDV ONE (09:22)
[2019-04-12 12:00] VITALS: BP 178/72
[2019-04-12] MEDS: LEVOFLOXACIN 500 MG TAB PO SCH (12:45)
--- NOTE | 2019-04-12 12:49 | NUR ---
IMM LETTER EXPLAINED TO THE PT. PT VERBALIZED UNDERSTANDING. IMM LETTER SIGNED AND COPY TO THE CHART AND COPY TO THE PT.
[2019-04-12] MEDS ORDERED: LEVAQUIN500 MG PO (12:55)
[2019-04-12] MEDS ORDERED: FLAGYL500 MG PO (12:56)
--- NOTE | 2019-04-12 13:15 | NUR ---
Discharge instructions, home medications and new prescription discussed with patient educated pt on indication, action, and possible side effects of meds. She is also made aware and instructed to follow up with Dr. Broderick in one week. Pt verbalized understanding of all instructions given. Printed discharge instructions, education, and list of medications with new prescription for flagyl and levoquin given to patient. Pt transported to discharge area via WC, denies pain or discomfort at time of discharge.
--- NOTE | 2019-04-12 13:41 | Discharge Summary ---
PRIMARY CARE DOCTOR: Dr. William Broderick. FINAL DIAGNOSIS: Diverticulitis. SECONDARY DIAGNOSES: 1. Subclavian steal syndrome. 2. Hypertension. CONSULTANTS: 1. Dr. Blevins, GI. 2. Dr. Yarbrough, Cardiology. PROCEDURES/STUDIES PERFORMED: 1. EGD, which was unremarkable. 2. CT of abdomen and pelvis. 3. Bleeding scan, which was negative. 4. Arterial Doppler shows patent subclavian stent. HISTORY: Per H and P. HOSPITAL COURSE: The patient was admitted, initially thought to have GI bleed and some kind of colitis, however, hemoglobin did not drop too much even with hydration, EGD was fairly unremarkable and bleeding scan was negative. Therefore, this is most likely due to iron that she was taking at home. 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 Fortunately, this time, her C difficile toxin was negative. CT scan shows probable diverticulitis, the patient was treated as such. Clinically, she improved very nicely. The patient will go home on Levaquin and Flagyl for three more days to complete one-week course. The patient's Plavix will also be restarted since there is no evidence of GI bleed. The patient was seen and examined today. It took 32 minutes total to discharge this patient. I have updated her at the bedside. I have also updated her primary care doctor as well about this hospitalization. CONDITION ON DISCHARGE: Improved. DISCHARGE MEDICATIONS: Please see medication reconciliation form. MD JARAD Christie/LEXI /[id number] cc: [facility]
[2019-04-12] MEDS ORDERED: LISINOPRIL 2.5 MG TAB PO SCH ×2 (17:00)
== END 2019-04-12 13:41 | disposition home or self-care (01) | DRG 378 ==
LOC: ER 11:08 → ERHOLD 16:52 → MED/SURG3 18:52
PROVIDERS: ADMIT Internal Medicine; ATTEND Internal Medicine
PROC: 0DB78ZX Excision of Stomach, Pylorus, Via Natural or Artificial Opening Endoscopic, Diagnostic (ICD-10-PCS; principal; 2019-04-10 08:30)
DX: K92.2 Gastrointestinal hemorrhage, unspecified (principal); G45.8 Other transient cerebral ischemic attacks and related syndromes; K57.90 Diverticulosis of intestine, part unspecified, without perforation or abscess without bleeding; I10 Essential (primary) hypertension; J45.909 Unspecified asthma, uncomplicated; Z90.710 Acquired absence of both cervix and uterus; M54.5 Low back pain; I73.9 Peripheral vascular disease, unspecified; I25.10 Atherosclerotic heart disease of native coronary artery without angina pectoris; J44.9 Chronic obstructive pulmonary disease, unspecified; E87.6 Hypokalemia; K20.9 Esophagitis, unspecified; K29.70 Gastritis, unspecified, without bleeding; K31.7 Polyp of stomach and duodenum
CPT/HCPCS: 36415; 43239; 71045; 74177; 78278; 80048; 80053; 80329; 81001; 82150; 82550; 82553; 83540; 83605; 83690; 83735; 84443; 84466; 84484; 85025; 85610; 85730; 87040; 87493; 88305; 88312; 93005; 93930; 99284; A9512; J1644; J2250; J2270; J2405; J2543; J3475; J7030; Q9967